=== PATIENT | male | born 1980 | race African-American/Black ===

== ENCOUNTER 2016-10-02 13:19 | Emergency (ER) | payer MEDICAID ==
[~2016-10-02] VITALS: Ht 177.8 cm; Wt 61.7 kg
[~2016-10-02 13:19] MED LIST: ADAL40PE INJ; AMOX1TAB64 PO; CERT400S SQ; CLIN300C93 PO; FERR325T20 PO; OMEP20CA9 PO; OXYC-302 PO; OXYC5TAB3 PO
[2016-10-02] MEDS ORDERED: AZAT50TA9 PO (14:27)
[2016-10-02] MEDS ORDERED: SODIUM CHLORIDE 0.9% 1,000 ML IV ONE (14:55)
[2016-10-02] MEDS ORDERED: HYDROmorphone 1 MG/ML, 1ML IVPush PRN (15:00)
[2016-10-02] MEDS ORDERED: ONDANSETRON 2MG/ML, 2ML IVPush ONE (15:00)
[2016-10-02] MEDS ORDERED: SODIUM CHLORIDE FLUSH 10ML SYR IVF ONE (15:00)
[2016-10-02] MEDS ORDERED: HYDROmorphone 1 MG/ML, 1ML ONE (15:02)
[2016-10-02] MEDS ORDERED: ONDANSETRON 2MG/ML, 2ML ONE (15:03)
[2016-10-02 15:24] LABS: BLOOD UREA NITROGEN 9 mg/dL (7-18)
[2016-10-02 15:27] LABS: ASPARTATE AMINO TRANSFERASE 8 U/L (15-37)
[2016-10-02 15:46] LABS: ANISOCYTOSIS 1+; MICROCYTOSIS 1+
[2016-10-02 15:47] LABS: OVALOCYTES 1+
[2016-10-02 15:48] LABS: LARGE PLATELETS 1+
[2016-10-02 17:50] VITALS: BP 95/56
== END 2016-10-02 18:08 | disposition home or self-care (01) ==
LOC: ED 18:02
DX: K50.80 Crohn's disease of both small and large intestine without complications (principal); Z93.3 Colostomy status; Z88.5 Allergy status to narcotic agent; Z88.8 Allergy status to other drugs, medicaments and biological substances
CPT/HCPCS: 36415; 80053; 81003; 83690; 85025; 85651; 86140; 96361; 96374; 96375; 99284; J1170; J2405; J7030; J7512

== ENCOUNTER → 2017-09-28 | Outpatient (CLI) | payer MEDICAID ==
[~2017-09-28] MED LIST changes: +AZAT50TA9 PO; +CLIN300C8 PO; -CLIN300C93 PO; +FERR325T18 PO; -FERR325T20 PO
== END | disposition home or self-care (01) ==
LOC: CFH 12:13
PROVIDERS: ATTEND Internal Medicine
DX: N62 Hypertrophy of breast (principal); N63.10 Unspecified lump in the right breast, unspecified quadrant
CPT/HCPCS: 77066

== ENCOUNTER 2017-11-07 17:20 | Emergency (ER) | payer MEDICAID ==
[~2017-11-07] VITALS: Ht 180.3 cm; Wt 81.9 kg
[2017-11-07 17:58] VITALS: BP 105/54
== END 2017-11-07 18:21 | disposition home or self-care (01) ==
LOC: ED 18:15
DX: L73.2 Hidradenitis suppurativa (principal); K50.90 Crohn's disease, unspecified, without complications; R50.9 Fever, unspecified; Z93.2 Ileostomy status; Z93.3 Colostomy status; Z88.6 Allergy status to analgesic agent
CPT/HCPCS: 99283

== ENCOUNTER → 2018-07-26 | Outpatient (CLI) | payer MEDICAID | END | disposition home or self-care (01) | LOC: WOUND 09:05 | PROVIDERS: ATTEND Family Medicine | DX: T81.31XA Disruption of external operation (surgical) wound, not elsewhere classified, initial encounter (principal); L98.411 Non-pressure chronic ulcer of buttock limited to breakdown of skin; S31.31XA Laceration without foreign body of scrotum and testes, initial encounter; K50.018 Crohn's disease of small intestine with other complication; X58.XXXA Exposure to other specified factors, initial encounter; Y93.89 Activity, other specified; Y99.8 Other external cause status; Y92.89 Other specified places as the place of occurrence of the external cause; Y83.8 Other surgical procedures as the cause of abnormal reaction of the patient, or of later complication, without mention of misadventure at the time of the procedure | CPT/HCPCS: 10060; 99205 ==

== ENCOUNTER → 2018-08-02 | Outpatient (CLI) | payer MEDICAID | END | disposition home or self-care (01) | LOC: WOUND 11:09 | PROVIDERS: ATTEND Family Medicine | DX: T81.31XD Disruption of external operation (surgical) wound, not elsewhere classified, subsequent encounter (principal); L89.319 Pressure ulcer of right buttock, unspecified stage; K50.018 Crohn's disease of small intestine with other complication; S31.31XD Laceration without foreign body of scrotum and testes, subsequent encounter; X58.XXXD Exposure to other specified factors, subsequent encounter; Y83.8 Other surgical procedures as the cause of abnormal reaction of the patient, or of later complication, without mention of misadventure at the time of the procedure | CPT/HCPCS: 99215 ==

== ENCOUNTER → 2018-08-13 | Outpatient (CLI) | payer MEDICAID | END | disposition home or self-care (01) | LOC: WOUND 10:52 | PROVIDERS: ATTEND Internal Medicine Cardiovascular Disease | DX: S31.31XD Laceration without foreign body of scrotum and testes, subsequent encounter (principal); S31.80 Open wound of unspecified buttock; K50.018 Crohn's disease of small intestine with other complication; L73.2 Hidradenitis suppurativa; X58.XXXD Exposure to other specified factors, subsequent encounter; Y83.8 Other surgical procedures as the cause of abnormal reaction of the patient, or of later complication, without mention of misadventure at the time of the procedure | CPT/HCPCS: 99214 ==

== ENCOUNTER → 2018-08-19 | Outpatient (CLI) | payer MEDICAID | END | disposition home or self-care (01) | LOC: WOUND 14:00 | PROVIDERS: ATTEND Family Medicine | DX: T81.31XD Disruption of external operation (surgical) wound, not elsewhere classified, subsequent encounter (principal); S31.80 Open wound of unspecified buttock; S31.31XD Laceration without foreign body of scrotum and testes, subsequent encounter; K50.018 Crohn's disease of small intestine with other complication; L73.2 Hidradenitis suppurativa; Y83.8 Other surgical procedures as the cause of abnormal reaction of the patient, or of later complication, without mention of misadventure at the time of the procedure | CPT/HCPCS: 97597 ==

== ENCOUNTER → 2018-08-23 | Outpatient (CLI) | payer MEDICAID | END | disposition home or self-care (01) | LOC: WOUND 13:13 | PROVIDERS: ATTEND Family Medicine | DX: T81.31XD Disruption of external operation (surgical) wound, not elsewhere classified, subsequent encounter (principal); S31.31XD Laceration without foreign body of scrotum and testes, subsequent encounter; S31.80 Open wound of unspecified buttock; K50.018 Crohn's disease of small intestine with other complication; L73.2 Hidradenitis suppurativa; Y83.8 Other surgical procedures as the cause of abnormal reaction of the patient, or of later complication, without mention of misadventure at the time of the procedure | CPT/HCPCS: 99212 ==

== ENCOUNTER → 2018-08-26 | Outpatient (CLI) | payer MEDICAID | END | disposition home or self-care (01) | LOC: WOUND 11:05 | PROVIDERS: ATTEND Internal Medicine Cardiovascular Disease | DX: T81.31XD Disruption of external operation (surgical) wound, not elsewhere classified, subsequent encounter (principal); S31.31XD Laceration without foreign body of scrotum and testes, subsequent encounter; S31.80 Open wound of unspecified buttock; L73.2 Hidradenitis suppurativa; K50.018 Crohn's disease of small intestine with other complication; Y83.8 Other surgical procedures as the cause of abnormal reaction of the patient, or of later complication, without mention of misadventure at the time of the procedure | CPT/HCPCS: 99212 ==

== ENCOUNTER → 2018-08-30 | Outpatient (CLI) | payer MEDICAID | END | disposition home or self-care (01) | LOC: WOUND 13:17 | PROVIDERS: ATTEND Internal Medicine Cardiovascular Disease | DX: T81.31XD Disruption of external operation (surgical) wound, not elsewhere classified, subsequent encounter (principal); S31.80 Open wound of unspecified buttock; S31.31XD Laceration without foreign body of scrotum and testes, subsequent encounter; K50.018 Crohn's disease of small intestine with other complication; L73.2 Hidradenitis suppurativa; Y83.8 Other surgical procedures as the cause of abnormal reaction of the patient, or of later complication, without mention of misadventure at the time of the procedure | CPT/HCPCS: 99214 ==

== ENCOUNTER → 2018-09-13 | Outpatient (CLI) | payer MEDICAID | END | disposition home or self-care (01) | LOC: WOUND 10:00 | PROVIDERS: ATTEND Family Medicine | DX: T81.31XD Disruption of external operation (surgical) wound, not elsewhere classified, subsequent encounter (principal); S31.80 Open wound of unspecified buttock; S31.31XD Laceration without foreign body of scrotum and testes, subsequent encounter; K50.018 Crohn's disease of small intestine with other complication; L73.2 Hidradenitis suppurativa; Y83.8 Other surgical procedures as the cause of abnormal reaction of the patient, or of later complication, without mention of misadventure at the time of the procedure | CPT/HCPCS: 10060 ==